=== PATIENT | female | born 1950 | race Caucasian/White ===

== ENCOUNTER → 2017-03-05 | Outpatient (CLI) | payer OTHER | END | disposition home or self-care (01) | LOC: GMAL 10:27 | PROVIDERS: ATTEND Family Medicine | DX: N30.00 Acute cystitis without hematuria (principal) ==

== ENCOUNTER → 2018-09-10 | Outpatient (CLI) | payer BC | LOC: GMAL 14:39 | PROVIDERS: ATTEND Family Medicine | DX: D53.9 Nutritional anemia, unspecified (principal); R53.82 Chronic fatigue, unspecified; E55.9 Vitamin D deficiency, unspecified ==

== ENCOUNTER 2018-11-08 05:31 | Day surgery (SDC) | payer BC ==
[2018-11-08] MEDS ORDERED: MOXIFLOXACIN HCL (OPHTH) 1 DROP DROPS ONE (08:49)
[2018-11-08] MEDS ORDERED: PROPARACAINE 0.5% OPHTH SOL 15 ML BTTL ONE (08:50)
[2018-11-08] MEDS ORDERED: TROP 1%/CYCLOPEN 1%/PHENYL 2% DROPS ONE (08:50)
[2018-11-08] MEDS ORDERED: MIDAZOLAM INJ 2 MG/2 ML VIAL ONE (09:22)
[2018-11-08] MEDS ORDERED: PROPARACAINE 0.5% OPHTH SOL 15 ML BTTL RIGHT_EYE ONE (09:25)
[2018-11-08] MEDS ORDERED: LIDOCAINE 1% 2 ML VIAL INJ ONE (09:35)
[2018-11-08] MEDS ORDERED: MOXIFLOXACIN HCL (OPHTH) 1 DROP DROPS RIGHT_EYE ONE ×2 (09:41→09:46)
[2018-11-08] MEDS ORDERED: DEXAMETHASONE 0.1% OPHTH SOL 1 DROP RIGHT_EYE ONE ×2 (09:42→09:47)
[2018-11-08] MEDS ORDERED: BRIMONIDINE 0.2% OPHTH DROPS RIGHT_EYE ONE ×2 (09:42→09:47)
[2018-11-08] MEDS ORDERED: TOBRAMYCIN SULF 0.3 % OPHT SOL 1 DROP RIGHT_EYE ONE ×2 (09:42→09:47)
== END 2018-11-08 11:05 | disposition home or self-care (01) ==
LOC: AMB 05:31
PROVIDERS: ATTEND Ophthalmology
DX: H25.11 Age-related nuclear cataract, right eye (principal)
CPT/HCPCS: 00142; 66984; J2250